=== PATIENT | male | born 1975 | race Caucasian/White ===

== ENCOUNTER 2017-10-22 13:11 | Emergency (ER) | payer SELFPAY, OTHER | END 2017-10-23 07:10 | disposition left against medical advice (07) | LOC: E/R 13:11 | DX: Z53.21 Procedure and treatment not carried out due to patient leaving prior to being seen by health care provider (principal) ==

== ENCOUNTER 2018-09-25 00:02 | Emergency (ER) | payer OTHER ==
[2018-09-25] MEDS ORDERED: KETOROLAC 60 MG INJ IM (00:22)
[2018-09-25] MEDS: morphine 4 MG/ML VIAL IM (01:46)
== END 2018-09-25 02:08 | disposition home or self-care (01) ==
LOC: E/R 00:02
DX: M54.6 Pain in thoracic spine (principal); M54.5 Low back pain; M54.2 Cervicalgia; I10 Essential (primary) hypertension; E11.9 Type 2 diabetes mellitus without complications; R93.0 Abnormal findings on diagnostic imaging of skull and head, not elsewhere classified; Z79.01 Long term (current) use of anticoagulants; Z95.1 Presence of aortocoronary bypass graft; Z79.82 Long term (current) use of aspirin; Z79.4 Long term (current) use of insulin
CPT/HCPCS: 70450; 71045; 72125; 72128; 72131; 96372; 99285-25